=== PATIENT | female | born 1945 | race Caucasian/White ===

== ENCOUNTER 2021-09-24 09:28 | Inpatient (IN) | payer MEDICARE, BC ==
[~2021-09-24] VITALS: Ht 165.1 cm; Wt 93.9 kg
[2021-09-24] MEDS ORDERED: normal saline 1000ml 1,000 ML IV ONE (09:55)
[2021-09-24] MEDS ORDERED: aspirin 325mg tablet PO ONE (09:55)
[2021-09-24] MEDS ORDERED: diltiazem 5mg/ml 5ml inj. IV ONE (09:55)
[2021-09-24 10:25] LABS: BASOPHILS # (AUTO) 0.1 X10'3 (0-0.2); EOSINOPHILS # (AUTO) 0.3 X10'3 (0-0.9); NEUTROPHILS # (AUTO) 7.6 X10'3 (1.8-7.7); WHITE BLOOD COUNT 12.2 X10'3 (4.5-11.0)
[2021-09-24 10:26] LABS: BASOPHILS % (AUTO) 0.9 % (0-1); EOSINOPHILS % (AUTO) 2.2 % (0-6); HEMATOCRIT 45.9 % (35.0-45.0); HEMOGLOBIN 15.6 g/dl (12.0-16.0); LYMPHOCYTES # (AUTO) 3.2 X10'3 (1.1-4.8); LYMPHOCYTES % (AUTO) 26.1 % (21-51); MEAN CORPUSCULAR HEMOGLOBIN 31.4 PG (27.0-31.0); MEAN CORPUSCULAR VOLUME 92.5 FL (78-98); MEAN PLATELET VOLUME 10.8 FL (7.4-10.4); MONOCYTES % (AUTO) 8.4 % (2-12); NEUTROPHILS % (AUTO) 62.4 % (42-75); PLATELET COUNT 286 X10'3 (140-440); RED BLOOD COUNT 4.97 X10'6 (4.20-5.60); RED CELL DISTRIBUTION WIDTH 14.6 % (11.5-14.5)
[2021-09-24] MEDS: diltiazem-NS 100mg/100ml 100 ML IV SCH (10:33)
[2021-09-24] MEDS ORDERED: heparin 10,000 units/1 ML INJ IV ONE ×2 (10:40→10:45)
[2021-09-24] MEDS ORDERED: HEPARIN SOD,PORK IN 0.45% NACL 250 ML IV SCH (10:40)
[2021-09-24 10:43] LABS: ALANINE AMINOTRANSFERASE 48 U/L (12-78); ALBUMIN 3.3 G/DL (3.4-5.0); ALBUMIN/GLOBULIN RATIO 0.7 (1.1-1.5); ALKALINE PHOSPHATASE 182 IU/L (46-116); ANION GAP 10 (8-16); ASPARTATE AMINO TRANSFERASE 47 U/L (10-37); BILIRUBIN,TOTAL 0.5 MG/DL (0.1-1.0); BLOOD UREA NITROGEN 7 MG/DL (7-18); BUN/CREATININE RATIO 9.7 (6.6-38.0); CALCIUM 8.9 MG/DL (8.5-10.1); CHLORIDE 101 MMOL/L (99-107); CREATININE 0.72 MG/DL (0.40-0.90); GLUCOSE 201 MG/DL (70-104); POTASSIUM 3.3 MMOL/L (3.5-5.1); SODIUM 139 MMOL/L (135-145); TOTAL CARBON DIOXIDE 27.7 MMOL/L (24-32); TOTAL PROTEIN 7.9 G/DL (6.4-8.2); eGFR 79 ML/MIN
[2021-09-24 11:12] LABS: APTT 27 SECONDS (22-32)
[2021-09-24 11:50] LABS: LARGE PLATELETS FEW; PLATELET ESTIMATE NORMAL
[2021-09-24] MEDS ORDERED: POTASSIUM BICARB 20meq eff tab 20 MEQ TABLET.EFF PO PRN (11:50)
[2021-09-24] MEDS ORDERED: dextrose 50%-water 50ml dispensing syringe IV PRN ×2 (11:50)
[2021-09-24] MEDS ORDERED: magnesium 4gm in 100ml NS 100 ML IV PRN (11:50)
[2021-09-24] MEDS ORDERED: MESSAGE TO PHARMACY PO ONE (11:50)
[2021-09-24] MEDS ORDERED: mag hydrox/Alum hydrox/simeth 30ml oral suspension PO PRN (11:50)
[2021-09-24] MEDS ORDERED: ipratropium/albuterol 3ml nebule NEB PRN (11:50)
[2021-09-24] MEDS ORDERED: potassium CL 10mEq/100ml bag 100 ML IV PRN (11:50)
[2021-09-24] MEDS ORDERED: ondansetron/PF 4mg/2ml inj IV PRN (11:50)
[2021-09-24] MEDS ORDERED: insulin Lispro (HumaLOG) vial - multi-dose SQ SCH (11:50)
[2021-09-24] MEDS ORDERED: magnesium hydroxide 30ml (MOM) UD suspension PO PRN (11:50)
[2021-09-24] MEDS ORDERED: glucagon, human recombinant 1mg kit SUBCUT PRN (11:50)
[2021-09-24] MEDS ORDERED: albuterol 2.5 MG/3 ML nebule NEB PRN (11:50)
[2021-09-24] MEDS ORDERED: magnesium 2GM in 50ml NS 50 ML IV PRN (11:50)
[2021-09-24] MEDS ORDERED: PERFLUTREN PROTEIN-A MICROSPHR (Optison) 0.22 MG/ML 3ML VIAL IV ONE (11:50)
[2021-09-24] MEDS ORDERED: acetaminophen 325mg tablet PO PRN (11:50)
[2021-09-24] MEDS ORDERED: DEXTROSE 15 GM of carb/4 tabs (each vial/BOTTLE has 4 tablets) PO PRN ×2 (11:50)
[2021-09-24 12:43] LABS: HEMOGLOBIN A1C 6.5 % (4.5-6.2)
[2021-09-24] MEDS ORDERED: AMLO5TAB16 PO (13:00)
[2021-09-24] MEDS ORDERED: LOVA20TA2 PO (13:00)
[2021-09-24] MEDS ORDERED: METF-438 PO (13:00)
[2021-09-24] MEDS ORDERED: LEVO50TA8 PO (13:00)
--- NOTE | 2021-09-24 16:18 | NUR ---
report given to RN at this time for transfer to [id number]
[2021-09-24 16:48] VITALS: BP 148/87
[2021-09-24 18:00] VITALS: BP 141/90
[2021-09-24] MEDS ORDERED: K and/or MAG REPLACEMENT MC SCH (20:00)
[2021-09-24] MEDS: heparin 10,000 units/1 ML INJ IV PRN (20:54)
[2021-09-24] MEDS: metFORMIN 500mg tablet PO SCH (20:59)
[2021-09-24] MEDS: docusate sod 100mg capsule PO SCH (21:00)
[2021-09-24] MEDS ORDERED: insulin glargine (Lantus) pen - multi-dose SQ SCH (21:00)
[2021-09-24] MEDS: POTASSIUM BICARB 20meq eff tab 20 MEQ TABLET.EFF PO PRN (21:01)
[2021-09-24 22:00] VITALS: BP 111/89
[2021-09-25] MEDS: POTASSIUM BICARB 20meq eff tab 20 MEQ TABLET.EFF PO PRN (01:23)
[2021-09-25 02:00] VITALS: BP 128/76
[2021-09-25 04:34] LABS: BASOPHILS # (AUTO) 0.2 X10'3 (0-0.2); BASOPHILS % (AUTO) 1.5 % (0-1); EOSINOPHILS # (AUTO) 0.3 X10'3 (0-0.9); HEMATOCRIT 42.2 % (35.0-45.0); HEMOGLOBIN 14.2 g/dl (12.0-16.0); LYMPHOCYTES # (AUTO) 4.1 X10'3 (1.1-4.8); LYMPHOCYTES % (AUTO) 30.3 % (21-51); MEAN CORPUSCULAR HGB CONC 33.6 g/dL (33.0-36.5); MEAN CORPUSCULAR VOLUME 92.5 FL (78-98); MEAN PLATELET VOLUME 10.4 FL (7.4-10.4); MONOCYTES # (AUTO) 1.5 X10'3 (0-0.9); MONOCYTES % (AUTO) 10.9 % (2-12); NEUTROPHILS # (AUTO) 7.4 X10'3 (1.8-7.7); NEUTROPHILS % (AUTO) 55.3 % (42-75); PLATELET COUNT 238 X10'3 (140-440); RED BLOOD COUNT 4.56 X10'6 (4.20-5.60); RED CELL DISTRIBUTION WIDTH 14.5 % (11.5-14.5); WHITE BLOOD COUNT 13.4 X10'3 (4.5-11.0)
[2021-09-25 04:51] LABS: ALANINE AMINOTRANSFERASE 51 U/L (12-78); ALBUMIN/GLOBULIN RATIO 0.7 (1.1-1.5); ALKALINE PHOSPHATASE 148 IU/L (46-116); ANION GAP 15 (8-16); ASPARTATE AMINO TRANSFERASE 49 U/L (10-37); BILIRUBIN,TOTAL 0.7 MG/DL (0.1-1.0); BLOOD UREA NITROGEN 8 MG/DL (7-18); BUN/CREATININE RATIO 12.9 (6.6-38.0); CALCIUM 8.8 MG/DL (8.5-10.1); CHLORIDE 104 MMOL/L (99-107); CHOL/HDL RATIO 2.4 (0.00-4.99); CHOLESTEROL 119 MG/DL (0-200); CREATININE 0.62 MG/DL (0.40-0.90); GLUCOSE 116 MG/DL (70-104); HDL CHOLESTEROL 49 MG/DL (35-60); LDL CHOLESTEROL 59 MG/DL (50-100); MAGNESIUM 1.7 MG/DL (1.5-2.4); POTASSIUM 3.6 MMOL/L (3.5-5.1); SODIUM 144 MMOL/L (135-145); TOTAL CARBON DIOXIDE 25.5 MMOL/L (24-32); TOTAL PROTEIN 7.3 G/DL (6.4-8.2); TRIGLYCERIDES 89 MG/DL (20-135); eGFR > 90 ML/MIN
[2021-09-25] MEDS: heparin 10,000 units/1 ML INJ IV PRN (05:41)
[2021-09-25 05:45] VITALS: BP 121/69
[2021-09-25] MEDS: diltiazem-NS 100mg/100ml 100 ML IV SCH (05:45)
--- NOTE | 2021-09-25 07:38 | NUR ---
0700 am BG POCT at 137
[2021-09-25] MEDS ORDERED: levoTHYROXINE 25mcg tablet PO SCH (08:00)
[2021-09-25] MEDS ORDERED: CefTRIAXone/D5W-Rocephin 1gm 50 ML IV SCH (08:00)
[2021-09-25] MEDS ORDERED: atorvastatin 10mg tablet PO SCH (08:00)
[2021-09-25] MEDS ORDERED: diltiazem CD 120mg capsule (once-daily) PO SCH (08:00)
[2021-09-25] MEDS ORDERED: azithromycin 250mg tablet PO SCH (08:00)
[2021-09-25] MEDS: metFORMIN 500mg tablet PO SCH (08:05)
[2021-09-25] MEDS: docusate sod 100mg capsule PO SCH (08:11)
--- NOTE | 2021-09-25 08:29 | NUR ---
DM consult: Per EMR pt with T2DM, well controlled with A1c 6.5%. DM education not warranted at this time. Will continue to follow. Addendum: 09/25/21 at [address] Amended: Links added.
[2021-09-25] MEDS ORDERED: apixaban 5mg tablet PO SCH (09:00)
[2021-09-25] MEDS ORDERED: AZI25OT PO (09:28)
[2021-09-25] MEDS ORDERED: APIX5TAB3 PO (09:28)
[2021-09-25] MEDS ORDERED: CARCD120C PO (09:28)
--- NOTE | 2021-09-25 12:30 | NUR ---
PT in stable condition. IVs removed and all meds given. DC instructions and medication reviewed with patient. packet given to patient and paperwork signed for acknowledgement. New medications called into [facility]/yvonne wilkerson. all needs met in real time.
--- NOTE | 2021-09-25 13:11 | NUR ---
Dr. Russo paged and notified of [facility] phone call "[facility] called RE: ([address] Ofe Simons) Diltiazem new Rx & Lovastatin interaction. Causes muscle deterioration. Still ok with new Rx of Dilt? Takes lovastatin @home. Irene Pate RN"
== END 2021-09-25 12:20 | disposition home or self-care (01) | DRG 310 ==
LOC: ER 09:29 → ED HOLD 12:34 → EDBEDREQ 15:58 → PCU 3S 16:40
PROVIDERS: ADMIT Family Medicine; ATTEND Family Medicine
DX: I48.91 Unspecified atrial fibrillation (principal); Z20.822 Contact with and (suspected) exposure to COVID-19; E03.9 Hypothyroidism, unspecified; E11.9 Type 2 diabetes mellitus without complications; E78.00 Pure hypercholesterolemia, unspecified; E87.6 Hypokalemia; I10 Essential (primary) hypertension; Z79.01 Long term (current) use of anticoagulants; Z79.84 Long term (current) use of oral hypoglycemic drugs; Z79.899 Other long term (current) drug therapy; Z80.52 Family history of malignant neoplasm of bladder; Z90.81 Acquired absence of spleen; Z90.49 Acquired absence of other specified parts of digestive tract; Z72.0 Tobacco use; Z71.6 Tobacco abuse counseling
CPT/HCPCS: 36415; 71045; 80053; 80061; 82948; 83036; 83735; 83880; 84484; 85008; 85025; 85610; 85730; 87081; 87811; 93005; 93306; 94760; 99285; G0378; J1644; J1815; J3490; J7030

== ENCOUNTER 2024-06-18 10:24 | Emergency (ER) | payer OTHER, MEDICARE, BC ==
[~2024-06-18] VITALS: Ht 167.6 cm; Wt 84.6 kg
[~2024-06-18 10:24] MED LIST: APIX5TAB3 PO; AZI25OT PO; CARCD120C PO; LEVO50TA8 PO; LOVA20TA2 PO; METF-438 PO
--- NOTE | 2024-06-18 10:48 | ELECTROCARDIOGRAPH REPORT ---
[facility] Test Date: 2024-06-18 Test Time: 10:30:30 Pat Name: DARYN BAER Department: EMERGENCY ROOM Room: Gender: F Dog Handler: SAMY : 1945 Requested By: MIRIAN YOUNGBLOOD Order Number: [id number] Reading MD: Measurements Intervals [place] Rate: 81 P: 0 WV: 0 QRS: -26 QRSD: 84 T: 32 QT: 406 QTc: 472 Interpretive Statements Atrial fibrillation Borderline left axis deviation Low voltage, precordial leads Probable anteroseptal infarct, old Please click the below link to view image of tracing.
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
[2024-06-18 11:13] LABS: BASOPHILS # (AUTO) 0.1 X10'3 (0-0.2); EOSINOPHILS # (AUTO) 0.2 X10'3 (0-0.9); MONOCYTES # (AUTO) 0.6 X10'3 (0-0.9); NEUTROPHILS # (AUTO) 3.8 X10'3 (1.8-7.7); WHITE BLOOD COUNT 7.1 X10'3 (4.5-11.0)
[2024-06-18 11:15] LABS: BASOPHILS % (AUTO) 0.9 % (0-1); EOSINOPHILS % (AUTO) 2.3 % (0-6); HEMATOCRIT 43.3 % (35.0-45.0); HEMOGLOBIN 14.5 g/dl (12.0-16.0); LYMPHOCYTES # (AUTO) 2.5 X10'3 (1.1-4.8); MEAN CORPUSCULAR HEMOGLOBIN 30.7 PG (27.0-31.0); MEAN CORPUSCULAR HGB CONC 33.6 g/dL (33.0-36.5); MEAN CORPUSCULAR VOLUME 91.3 FL (78-98); MEAN PLATELET VOLUME 9.7 FL (7.4-10.4); MONOCYTES % (AUTO) 8.2 % (2-12); NEUTROPHILS % (AUTO) 53.6 % (42-75); PLATELET COUNT 240 X10'3 (140-440); RED BLOOD COUNT 4.74 X10'6 (4.20-5.60); RED CELL DISTRIBUTION WIDTH 15.6 % (11.5-14.5)
[2024-06-18 11:24] LABS: ALANINE AMINOTRANSFERASE 28 U/L (12-78); ALBUMIN 2.7 G/DL (3.4-5.0); ALBUMIN/GLOBULIN RATIO 0.6 (1.1-1.5); ALKALINE PHOSPHATASE 200 IU/L (46-116); ANION GAP 4 (8-16); ASPARTATE AMINO TRANSFERASE 35 U/L (10-37); BILIRUBIN,TOTAL 0.7 MG/DL (0.1-1.0); BLOOD UREA NITROGEN 14 MG/DL (7-18); BUN/CREATININE RATIO 16.9 (10.0-20.0); CALCIUM 9.1 MG/DL (8.5-10.1); CHLORIDE 104 MMOL/L (99-107); CREATININE 0.83 MG/DL (0.40-0.90); GLUCOSE 106 MG/DL (70-104); POTASSIUM 3.8 MMOL/L (3.5-5.1); SODIUM 140 MMOL/L (135-145); TOTAL CARBON DIOXIDE 31.7 MMOL/L (24-32); TOTAL PROTEIN 7.4 G/DL (6.4-8.2); eCRCL 51 ML/MIN; eGFR 66 ML/MIN
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
[2024-06-18 12:58] VITALS: BP 130/79; PULSE 74; RESP 12; TEMP 98; O2SAT 98
== END 2024-06-18 13:02 | disposition home or self-care (01) ==
LOC: ER 10:25
DX: S80.02XA Contusion of left knee, initial encounter (principal); E11.9 Type 2 diabetes mellitus without complications; E78.00 Pure hypercholesterolemia, unspecified; I10 Essential (primary) hypertension; V43.62XA Car passenger injured in collision with other type car in traffic accident, initial encounter; Y93.89 Activity, other specified; Y92.89 Other specified places as the place of occurrence of the external cause; Y99.8 Other external cause status
CPT/HCPCS: 36415; 71045; 80053; 84484; 85025; 93005; 99285